=== PATIENT | female | born 1960 ===

== ENCOUNTER 2025-04-16 08:12 | Inpatient (IN) | payer SELFPAY ==
[~2025-04-16] VITALS: Ht 167.6 cm; Wt 90.7 kg
[2025-04-16] VITALS (24 sets, daily range): BP systolic 106–190; BP diastolic 81–133
[2025-04-16 08:25] LABS: pH Blood Venous 7.42 (7.34-7.37)
[2025-04-16] MEDS ORDERED: NiCARdipine HCL 50 MG in NS 250 ML IV SCH (08:30)
[2025-04-16 08:31] LABS: BASOPHILS ABSOLUTE AUTO 0.12 K/mm3 (0.00-0.23); BASOPHILS PERCENT AUTO 0 % (0-2); EOSINOPHILS ABSOLUTE AUTO 0.17 K/mm3 (0.00-0.68); EOSINOPHILS PERCENT AUTO 1 % (0-6); Hematocrit 53.9 % (33.0-51.0); Hemoglobin 17.5 g/dL (11.5-16.0); IMMATURE GRAN ABSOLUTE AUTO 0.22 K/mm3 (0.00-0.10); IMMATURE GRAN PERCENT AUTO 1 % (0-1); LYMPHOCYTES ABSOLUTE AUTO 4.64 K/mm3 (0.84-5.20); LYMPHOCYTES PERCENT AUTO 15 % (21-46); MONOCYTES ABSOLUTE AUTO 1.69 K/mm3 (0.16-1.47); MONOCYTES PERCENT AUTO 6 % (4-13); Mean Corpuscular HGB Conc 32.5 g/dL (31.5-36.5); Mean Corpuscular Volume 85 fL (80-100); NEUTROPHILS ABSOLUTE AUTO 23.61 K/mm3 (1.96-9.15); NEUTROPHILS PERCENT AUTO 78 % (41-73); NRBC ABSOLUTE 0.00 K/mm3 (0.00-0.02); NRBC Auto 0.0 /100 WBC (0.0-0.2); Platelet Count 397 K/mm3 (150-400); RDW Coefficient Variation 13.1 % (11.7-14.2); RDW Standard Deviation 40.6 fL (35.1-46.3)
[2025-04-16 08:54] LABS: Alanine Aminotransfer (ALT/SGP 30.0 U/L (12-78); Albumin, Blood 3.1 g/dL (3.4-5.0); Albumin/Globulin Ratio 0.8 (0.8-1.8); Anion Gap 10.0 mmol/L (3-11); Aspartate Aminotrans (AST/SGOT 52.0 U/L (12-37); Bilirubin, Total 0.4 mg/dL (0.1-1.0); Blood Urea Nitrogen 22.0 mg/dL (8-24); CO2, Blood 24.0 mmol/L (21-32); Calcium, Blood 8.4 mg/dL (8.5-10.1); Chloride, Blood 108.0 mmol/L (98-108); Creatinine, Blood 0.91 mg/dL (0.40-1.00); Globulin, Blood 3.8 g/dL (2.2-4.0); Glucose, Blood 158.0 mg/dL (70-99); Potassium, Blood 5.0 mmol/L (3.5-5.5); Sodium, Blood 137.0 mmol/L (136-145); Total Protein, Blood 6.9 g/dL (6.4-8.2)
[2025-04-16] MEDS ORDERED: [UNRECOGNIZED DRUG - OTHER] IV ONE (09:45)
[2025-04-16] MEDS ORDERED: MANNITOL IV ONE ×2 (09:45→10:05)
[2025-04-16] MEDS ORDERED: CefTRIAXone Sodium 1,000 MG in NS 100 ML IV ONE (10:05)
[2025-04-16 11:22] LABS: U Amphetamine Screen DETECTED; U Barbituate Screen Not Detected; U Benzodiazapine Screen Not Detected; U Buprenorphine Screen Not Detected; U Cannabinoids Screen Not Detected; U Cocaine Screen Not Detected; U Methadone Screen Not Detected; U Methamphetamine Screen DETECTED; U Opiates Screen Not Detected; U Oxycodone Screen Not Detected; U Phencyclidine Screen Not Detected
--- NOTE | 2025-04-16 14:04 | NUR ---
MD NOTIFICATION: NOTIFIED AYLA ANDERSON ABOUT PATIENTS INCREASING TEMPURATE AND ASKED ABOUT BP GOALS WITH CARDENE GTT; NO NEW ORDERS FOR FEVER AND KEEP SBP <140
[2025-04-16] MEDS ORDERED: NiCARdipine HCL 25 MG/10 ML (2.5MG/ML) IV SCH (14:20)
--- NOTE | 2025-04-16 15:45 | NUR ---
ROUNDED ON PT IN ED. PATIENT IS SEDATED, LAYING IN BED AND NONRESPONSIVE. DISCUSSED CASE WITH DR. RUBY AND BEDSIDE RN. CALLED PATIENTS BROTHER KIERAN TO PROVIDE SUPPORT AND CLARIFICATION IF HE NEEDED IT. HE EXPRESSED UNDERSTANDING OF THE POOR PROGNOSIS OF HIS SISTER. HE STATED SHE HAS TWO OTHER BROTHERS, IRASEMA, AND NIXON, AND TWO DAUGHTERS SALLY AND SILVER. SILVER LIVES IN [place]. SALLY LIVES IN [place] AND WILL BE COMING DOWN WITH KIERAN TO SEE FEMI. WE DISCUSSED GOALS OF CARE AND THEY UNDERSTAND THAT SHE SURVIVAL IS UNLIKLY. THEY UNDERSTAND THE PLAN IS TO TRANSITION TO COMFORT CARE WHEN THEY ARRIVE. THEY REQUEST TO LEAVE THE PATIENT INTUBATED UNTIL THEY ARE ABLE TO SEE HER. PATIENTS DAUGHTER SILVER CALLED. REVIEWED FEMI'S CURRENT CONDITION. PROVIDED THERAPUTIC CONVERSATION. DISCUSSED GOC AND CODE STATUS. SHE EXPRESSED THAT HER MOTHER WOULD NOT WANT TO BE RESSUCITATED AND WOULD NOT WANT TO BE ON LIFE SUPPORT. SHE IS SUPPORTATIVE ON PLAN TO TRANSITION TO COMFORT CARE.
[2025-04-16] MEDS ORDERED: Propofol 10mg/ml 20 ml Vial (Procedural) IV ONE (15:50)
[2025-04-16] MEDS ORDERED: SuccINYLCHOLINE Chloride 100 MG/5 ML 5MLSYR IV ONE (15:50)
[2025-04-16] MEDS ORDERED: Hydrogen Peroxide 1.5 % Solution MT SCH (16:00)
--- NOTE | 2025-04-16 18:28 | NUR ---
Rahul (oldest brother) and Vaishali (daughter) at bedside and updated again about patients course as the day has progressed. They both have expressed and agreed that the patient would not like to be on life support and would like the care team to swap her over to comfort measures. Their desires for the patient were also expressed with Rayna from the Palliative Care team.
--- NOTE | 2025-04-16 19:01 | NUR ---
PATIENTS RINGS PT DAUGHTER SALLY AT BEDSIDE REQUESTING PT'S RINGS BE REMOVED AND PLACED IN HER CARE. 6 RINGS IN TOTAL WERE REMOVED FROM PT'S FINGERS, PLACED IN CUP, AND GIVEN TO DAUGHTER.
--- NOTE | 2025-04-16 19:23 | NUR ---
PATIENT UPDATE ASSUMED CARE OF PATIENT AT 1900. RECEIVED BEDSIDE REPORT FROM SUNNI JOHNSON. FAMILY AT BEDSIDE, BROTHER AND DAUGHTER. CLA ON SITE AND FOLLOWING, FAMILY DECLINED DONATION. AT 1915 FAMILY TOLD NURSING STAFF THEY WERE READY TO EXTUBATE TO COMFORT CARE. NURSE SPOKE TO CHARGE NURSE, ANN, AND DR. LINDO. NEW ORDERS RECEIVED. CARE PLAN CONTINUED ORDERED.
[2025-04-16] MEDS ORDERED: Morphine Sulfate 10 MG/ML 1MLSYR IV PRN (19:25)
[2025-04-16] MEDS ORDERED: LORazepam 2 MG/ML 1ML Injection IV PRN (19:25)
--- NOTE | 2025-04-16 19:57 | NUR ---
PATIENT UPDATE PATIENT EXTUBATED TO COMFORT AT 194. RESPIRATORY AND RN AT BEDSIDE.
[2025-04-16] MEDS ORDERED: Cetylpyridinium Chloride 1 EA MISC MT SCH (20:00)
[2025-04-17] MEDS ORDERED: Pantoprazole Sodium 40 MG Injection IV SCH (09:00)
== END 2025-04-16 19:55 | DRG 64 ==
LOC: ER 08:12 → ICUE 11:36 → EDBD 11:36 → ICUE 12:55
PROVIDERS: Emergency Medicine; ADMIT Internal Medicine
PROC: 0BH17EZ Insertion of Endotracheal Airway into Trachea, Via Natural or Artificial Opening (ICD-10-PCS; principal; 2025-04-16)
PROC: 5A1935Z Respiratory Ventilation, Less than 24 Consecutive Hours (ICD-10-PCS; 2025-04-16)
PROC: 0DH67UZ Insertion of Feeding Device into Stomach, Via Natural or Artificial Opening (ICD-10-PCS; 2025-04-16)
PROC: 3E0G76Z Introduction of Nutritional Substance into Upper GI, Via Natural or Artificial Opening (ICD-10-PCS; 2025-04-16)
PROC: 3E03329 Introduction of Other Anti-infective into Peripheral Vein, Percutaneous Approach (ICD-10-PCS; 2025-04-16)
PROC: 0T9B70Z Drainage of Bladder with Drainage Device, Via Natural or Artificial Opening (ICD-10-PCS; 2025-04-16)
DX: I61.5 Nontraumatic intracerebral hemorrhage, intraventricular (principal); A41.9 Sepsis, unspecified organism; J18.9 Pneumonia, unspecified organism; J69.0 Pneumonitis due to inhalation of food and vomit; J96.01 Acute respiratory failure with hypoxia; I16.1 Hypertensive emergency; I24.89 Other forms of acute ischemic heart disease; R40.2A Nontraumatic coma due to underlying condition; Z66 Do not resuscitate; Z51.5 Encounter for palliative care; I44.7 Left bundle-branch block, unspecified; F15.90 Other stimulant use, unspecified, uncomplicated; Z79.899 Other long term (current) drug therapy
CPT/HCPCS: 31500; 51702; 70450; 71045; 80053; 82803; 84484; 85025; 93005; 93010; 94002; 96365-59; 96367-59; 96368; 96375-59; 99291-25; 99292; A9270; J0330; J0696; J1953; J2150; J2270; J2704; J7050